=== PATIENT | male | born 1980 | race Caucasian/White ===

== ENCOUNTER → 2022-01-12 | Emergency (ER) | payer OTHER ==
[~2022-01-12] VITALS: Ht 182.9 cm; Wt 100.0 kg
[~2022-01-12] MED LIST: KETOROLAC 15MG/ML VIAL IM NR; KETOROLAC 60MG/2ML VIAL IM NR
[2022-01-12 22:16] VITALS: BP 112/78
== END ==
LOC: ER 16:27
DX: S09.8XXA Other specified injuries of head, initial encounter (principal); W18.39XA Other fall on same level, initial encounter; Y93.89 Activity, other specified; Y92.89 Other specified places as the place of occurrence of the external cause; Y99.8 Other external cause status; M25.512 Pain in left shoulder
CPT/HCPCS: 71045; 73030; 73060; 99284